=== PATIENT | female | born 1955 | race African-American/Black ===

== ENCOUNTER 2021-11-24 18:01 | Inpatient (IN) | payer MEDICARE, MEDICAID ==
[~2021-11-24] VITALS: Ht 160 cm; Wt 108.0 kg
[~2021-11-24 18:01] MED LIST: INSLAN; NAPR-681; NPH,100V; NPH,100V11
[2021-11-24 20:55] LABS: BASOPHILS % 0.4 % (0.0-2.0); EOSINOPHILS % 0.1 % (0.0-5.0); HEMOGLOBIN. 10.2 g/dL (12.0-16.0); LYMPHOCYTES % 10.8 % (20.0-50.0); MEAN CORPUSCULAR HEMOGLOBIN 25.4 pg (28.0-32.0); MEAN CORPUSCULAR VOLUME 79.9 fL (81.0-99.0); MEAN PLATELET VOLUME 8.3 fl (7.4-10.4); MONOCYTES % 10.1 % (2.0-8.0); NEUTROPHILS % 78.6 % (40.0-76.0); PLATELET 324 x1000/uL (130-400); RED BLOOD CELL COUNT 4.01 mill/uL (4.2-5.4); RED CELL DISTRIBUTION WIDTH 14.4 % (11.6-14.6)
[2021-11-24 20:56] LABS: CHLORIDE 107 mEq/L (98-107)
[2021-11-24] MEDS ORDERED: FUROSEMIDE 40MG/4ML VIAL IVP ONE (22:15)
[2021-11-24] MEDS ORDERED: KETOROLAC 30MG/ML VIAL IV ONE (22:15)
[2021-11-24] MEDS ORDERED: GABAPENTIN 300MG CAPSULE PO ONE (22:15)
[2021-11-25] MEDS ORDERED: GUAIFENESIN 200MG/10ML SUGAR FREE UDC PO PRN (02:30)
[2021-11-25] MEDS ORDERED: MAGNESIUM/ALUMINUM HYDROXIDE/SIMETHICONE 30ML UDC PO PRN (02:30)
[2021-11-25] MEDS ORDERED: IPRATROPIUM/ALBUTEROL 0.5-3(2.5)MG/3ML NEB NEB PRN (02:30)
[2021-11-25] MEDS ORDERED: ONDANSETRON HCL 4MG/2ML INJ IV PRN (02:30)
[2021-11-25] MEDS ORDERED: ACETAMINOPHEN 325MG TABLET PO PRN (02:30)
[2021-11-25] MEDS ORDERED: HYDROCODONE/ACETAMINOPHEN 5/325MG TABLET PO PRN (02:30)
[2021-11-25 02:40] VITALS: BP 165/78
[2021-11-25 04:00] VITALS: BP 158/64
[2021-11-25] MEDS ORDERED: DEXTROSE 50% WATER 50ML SYRINGE IV PRN (06:45)
[2021-11-25] MEDS ORDERED: HYDRALAZINE HCL 10MG TABLET PO PRN (06:45)
[2021-11-25 07:13] LABS: HEMATOCRIT. 33.4 % (36.0-48.0); HEMOGLOBIN. 10.6 g/dL (12.0-16.0); MEAN CORPUSCULAR HEMOGLOBIN 25.7 pg (28.0-32.0); MEAN PLATELET VOLUME 8.3 fl (7.4-10.4); PLATELET 299 x1000/uL (130-400); RED BLOOD CELL COUNT 4.13 mill/uL (4.2-5.4); RED CELL DISTRIBUTION WIDTH 14.3 % (11.6-14.6)
[2021-11-25] MEDS: BLOOD SUGAR DIAGNOSTIC STRIP TEST SCH ×4 (07:55→20:46)
[2021-11-25 08:00] VITALS: BP 178/78
[2021-11-25 08:07] LABS: PHOSPHORUS 3.9 mg/dL (2.5-4.9)
[2021-11-25] MEDS: INSULIN LISPRO 100 UNITS/ML SUBCUT SCH ×4 (08:10→20:48)
[2021-11-25] MEDS ORDERED: NALOXONE HCL 0.4MG/ML VIAL IV PRN (08:15)
[2021-11-25] MEDS ORDERED: PIPERACILLIN/TAZOBACTAM 3.375 G in DEXTROSE 5% WATER 50 ML IV SCH (08:30)
[2021-11-25] MEDS ORDERED: ENOXAPARIN 40MG/0.4ML SYR SUBCUT SCH (09:00)
[2021-11-25] MEDS ORDERED: AMLO10TA4 MT (09:11)
[2021-11-25] MEDS ORDERED: LEVO112T7 MT (09:11)
[2021-11-25] MEDS ORDERED: LIP40 MT (09:11)
[2021-11-25] MEDS: CLONIDINE 0.1MG TABLET PO PRN (09:23)
[2021-11-25 09:28] LABS: PLATELET ESTIMATE NORMAL
[2021-11-25] MEDS ORDERED: VANCOMYCIN 2,000 MG in DEXT 5% WATER 500 ML IV NR (10:00)
[2021-11-25 12:00] VITALS: BP 161/76
[2021-11-25] MEDS: PIPERACILLIN/TAZOBACTAM 3.375 G in DEXTROSE 5% WATER 50 ML IV SCH ×2 (13:39→22:16)
[2021-11-25 16:00] VITALS: BP 154/71
[2021-11-25] MEDS: AMLODIPINE 10MG TABLET PO SCH (16:07)
[2021-11-25 20:00] VITALS: BP 158/67
[2021-11-25] MEDS: ENOXAPARIN 40MG/0.4ML SYR SUBCUT SCH (20:46)
[2021-11-26] VITALS: BP 121/70
[2021-11-26 04:00] VITALS: BP 136/73
[2021-11-26] MEDS: PIPERACILLIN/TAZOBACTAM 3.375 G in DEXTROSE 5% WATER 50 ML IV SCH ×3 (05:15→21:30)
[2021-11-26] MEDS: BLOOD SUGAR DIAGNOSTIC STRIP TEST SCH ×4 (05:42→21:00)
[2021-11-26] MEDS: INSULIN LISPRO 100 UNITS/ML SUBCUT SCH ×4 (05:42→21:00)
[2021-11-26 07:41] LABS: BASOPHILS % 0.3 % (0.0-2.0); EOSINOPHILS % 3.7 % (0.0-5.0); HEMATOCRIT. 28.9 % (36.0-48.0); HEMOGLOBIN. 9.2 g/dL (12.0-16.0); LYMPHOCYTES % 14.4 % (20.0-50.0); MEAN CORPUSCULAR HEMOGLOBIN 25.6 pg (28.0-32.0); MEAN PLATELET VOLUME 8.3 fl (7.4-10.4); MONOCYTES % 11.9 % (2.0-8.0); NEUTROPHILS % 69.7 % (40.0-76.0); PLATELET 289 x1000/uL (130-400); RED BLOOD CELL COUNT 3.61 mill/uL (4.2-5.4); RED CELL DISTRIBUTION WIDTH 14.1 % (11.6-14.6)
[2021-11-26 07:56] LABS: PHOSPHORUS 2.9 mg/dL (2.5-4.9)
[2021-11-26 08:00] VITALS: BP 144/66
[2021-11-26] MEDS: AMLODIPINE 10MG TABLET PO SCH (09:45)
[2021-11-26] MEDS: LEVOTHYROXINE SODIUM 112MCG TABLET PO SCH (09:45)
[2021-11-26] MEDS: ENOXAPARIN 40MG/0.4ML SYR SUBCUT SCH ×2 (09:45→21:30)
[2021-11-26] MEDS: VANCOMYCIN 750MG PMX (XELLIA) 150 ML IV SCH (09:47)
[2021-11-26 12:00] VITALS: BP 156/63
[2021-11-26 16:00] VITALS: BP 132/55
[2021-11-26 18:27] LABS: CREATINE KINASE MB FRACTION 1.1 ng/mL (0.5-3.6)
[2021-11-26 20:00] VITALS: BP 158/67
[2021-11-27 00:05] VITALS: BP 152/76
[2021-11-27 00:55] LABS: CREATINE KINASE MB FRACTION 1.3 ng/mL (0.5-3.6)
[2021-11-27 04:00] VITALS: BP 154/60
[2021-11-27] MEDS: PIPERACILLIN/TAZOBACTAM 3.375 G in DEXTROSE 5% WATER 50 ML IV SCH ×3 (05:38→20:54)
[2021-11-27] MEDS: BLOOD SUGAR DIAGNOSTIC STRIP TEST SCH ×4 (05:43→20:54)
[2021-11-27] MEDS: INSULIN LISPRO 100 UNITS/ML SUBCUT SCH ×4 (05:43→21:00)
[2021-11-27 08:24] LABS: CREATINE KINASE MB FRACTION 1.2 ng/mL (0.5-3.6)
[2021-11-27] MEDS: AMLODIPINE 10MG TABLET PO SCH (09:50)
[2021-11-27] MEDS: LEVOTHYROXINE SODIUM 112MCG TABLET PO SCH (09:50)
[2021-11-27] MEDS: VANCOMYCIN 750MG PMX (XELLIA) 150 ML IV SCH (09:50)
[2021-11-27] MEDS ORDERED: IOHEXOL-350 100 ML BOTTLE ONE (10:32)
[2021-11-27 12:00] VITALS: BP 148/65
[2021-11-27] MEDS: CLOPIDOGREL 75MG TABLET PO SCH (12:46)
[2021-11-27] MEDS: ENOXAPARIN 40MG/0.4ML SYR SUBCUT SCH ×2 (12:46→20:56)
[2021-11-27 16:00] VITALS: BP 169/77
[2021-11-27 20:00] VITALS: BP 124/88
[2021-11-27] MEDS ORDERED: DEXTROSE 50% WATER 50ML SYRINGE IV PRN ×3 (23:15)
[2021-11-27] MEDS ORDERED: INSULIN GLARGINE 100 UNITS/ML SUBCUT NR (23:15)
[2021-11-28 00:05] VITALS: BP 143/71
[2021-11-28 04:00] VITALS: BP 156/81
[2021-11-28] MEDS ORDERED: VANCOMYCIN 750MG PREMIX 150 ML IV SCH (04:00)
[2021-11-28] MEDS: PIPERACILLIN/TAZOBACTAM 3.375 G in DEXTROSE 5% WATER 50 ML IV SCH (05:35)
[2021-11-28] MEDS: BLOOD SUGAR DIAGNOSTIC STRIP TEST SCH ×4 (06:07→20:54)
[2021-11-28] MEDS ORDERED: BLOOD SUGAR DIAGNOSTIC STRIP TEST SCH ×2 (07:40)
[2021-11-28] MEDS: LEVOTHYROXINE SODIUM 112MCG TABLET PO SCH (07:58)
[2021-11-28] MEDS: INSULIN LISPRO 100 UNITS/ML SUBCUT SCH ×7 (07:59→20:54)
[2021-11-28 08:00] VITALS: BP 159/62
[2021-11-28 08:12] LABS: BASOPHILS % 0.3 % (0.0-2.0); EOSINOPHILS % 5.4 % (0.0-5.0); HEMATOCRIT. 30.2 % (36.0-48.0); MEAN CORPUSCULAR VOLUME 78.8 fL (81.0-99.0); MEAN PLATELET VOLUME 8.2 fl (7.4-10.4); MONOCYTES % 10.4 % (2.0-8.0); NEUTROPHILS % 69.9 % (40.0-76.0); PLATELET 347 x1000/uL (130-400); RED BLOOD CELL COUNT 3.83 mill/uL (4.2-5.4); RED CELL DISTRIBUTION WIDTH 13.8 % (11.6-14.6)
[2021-11-28 08:17] LABS: PHOSPHORUS 3.3 mg/dL (2.5-4.9)
[2021-11-28] MEDS: CLOPIDOGREL 75MG TABLET PO SCH (08:45)
[2021-11-28] MEDS: ENOXAPARIN 40MG/0.4ML SYR SUBCUT SCH ×2 (08:45→20:54)
[2021-11-28] MEDS: AMLODIPINE 10MG TABLET PO SCH (08:45)
[2021-11-28] MEDS: INSULIN GLARGINE 100 UNITS/ML SUBCUT SCH (10:12)
[2021-11-28 12:00] VITALS: BP 137/75
[2021-11-28 16:00] VITALS: BP 151/65
[2021-11-28 20:00] VITALS: BP 138/77
[2021-11-29] VITALS: BP 148/69
[2021-11-29 04:00] VITALS: BP 139/72
[2021-11-29] MEDS: LEVOTHYROXINE SODIUM 112MCG TABLET PO SCH (06:42)
[2021-11-29] MEDS: BLOOD SUGAR DIAGNOSTIC STRIP TEST SCH ×4 (06:45→20:54)
[2021-11-29] MEDS: INSULIN LISPRO 100 UNITS/ML SUBCUT SCH ×7 (06:45→20:54)
[2021-11-29 08:00] VITALS: BP 149/70
[2021-11-29] MEDS: CLOPIDOGREL 75MG TABLET PO SCH (09:23)
[2021-11-29] MEDS: AMLODIPINE 10MG TABLET PO SCH (09:23)
[2021-11-29] MEDS: ENOXAPARIN 40MG/0.4ML SYR SUBCUT SCH ×2 (09:24→20:49)
[2021-11-29] MEDS: INSULIN GLARGINE 100 UNITS/ML SUBCUT SCH (09:24)
[2021-11-29 12:00] VITALS: BP 130/66
[2021-11-29 16:00] VITALS: BP 142/73
[2021-11-29 20:00] VITALS: BP 164/74
[2021-11-30] VITALS: BP 143/69
[2021-11-30 04:00] VITALS: BP 170/72
[2021-11-30] MEDS: CLONIDINE 0.1MG TABLET PO PRN (04:00)
[2021-11-30] MEDS: BLOOD SUGAR DIAGNOSTIC STRIP TEST SCH ×4 (06:24→21:45)
[2021-11-30] MEDS: INSULIN LISPRO 100 UNITS/ML SUBCUT SCH ×7 (06:24→21:00)
[2021-11-30] MEDS: LEVOTHYROXINE SODIUM 112MCG TABLET PO SCH (06:25)
[2021-11-30 08:00] VITALS: BP 131/53
[2021-11-30] MEDS: ENOXAPARIN 40MG/0.4ML SYR SUBCUT SCH ×2 (09:50→21:44)
[2021-11-30] MEDS: CLOPIDOGREL 75MG TABLET PO SCH (09:50)
[2021-11-30] MEDS: AMLODIPINE 10MG TABLET PO SCH (09:51)
[2021-11-30] MEDS ORDERED: LIDOCAINE HCL/PF 1% 10 MG/ML 5ML VIAL ONE (10:30)
[2021-11-30] MEDS ORDERED: IODIXANOL 320MG/ML 100 ML BOTTLE IV ONE (10:30)
[2021-11-30] MEDS ORDERED: HEPARIN 1000 UNITS/ML 10ML ONE (10:31)
[2021-11-30] MEDS ORDERED: MIDAZOLAM HCL 2 MG/2 ML VIAL ONE (11:35)
[2021-11-30] MEDS ORDERED: FENTANYL CITRATE/PF 50MCG/ML 2ML VIAL ONE (11:35)
[2021-11-30] MEDS: INSULIN GLARGINE 100 UNITS/ML SUBCUT SCH (13:51)
[2021-11-30] MEDS: ACETAMINOPHEN 325MG TABLET PO PRN ×2 (14:02→21:44)
[2021-11-30 20:00] VITALS: BP 137/60
[2021-12-01 04:00] VITALS: BP_SYST 68
[2021-12-01 06:24] LABS: BASOPHILS % 0.3 % (0.0-2.0); EOSINOPHILS % 3.8 % (0.0-5.0); HEMATOCRIT. 32.8 % (36.0-48.0); HEMOGLOBIN. 10.6 g/dL (12.0-16.0); LYMPHOCYTES % 18.3 % (20.0-50.0); MEAN CORPUSCULAR HEMOGLOBIN 25.7 pg (28.0-32.0); MEAN CORPUSCULAR VOLUME 79.6 fL (81.0-99.0); MEAN PLATELET VOLUME 7.7 fl (7.4-10.4); MONOCYTES % 8.9 % (2.0-8.0); NEUTROPHILS % 68.7 % (40.0-76.0); PLATELET 449 x1000/uL (130-400); RED BLOOD CELL COUNT 4.12 mill/uL (4.2-5.4); RED CELL DISTRIBUTION WIDTH 13.7 % (11.6-14.6)
[2021-12-01] MEDS: BLOOD SUGAR DIAGNOSTIC STRIP TEST SCH ×4 (06:36→20:32)
[2021-12-01] MEDS: INSULIN LISPRO 100 UNITS/ML SUBCUT SCH ×7 (06:36→21:45)
[2021-12-01] MEDS: LEVOTHYROXINE SODIUM 112MCG TABLET PO SCH ×2 (06:39→08:53)
[2021-12-01 06:40] LABS: PHOSPHORUS 3.8 mg/dL (2.5-4.9)
[2021-12-01] MEDS: AMLODIPINE 10MG TABLET PO SCH (08:53)
[2021-12-01] MEDS: CLOPIDOGREL 75MG TABLET PO SCH (08:53)
[2021-12-01] MEDS: ENOXAPARIN 40MG/0.4ML SYR SUBCUT SCH ×2 (08:54→21:43)
[2021-12-01] MEDS: INSULIN GLARGINE 100 UNITS/ML SUBCUT SCH (10:33)
[2021-12-01 12:00] VITALS: BP 154/76
[2021-12-01] MEDS ORDERED: CLOP75TA15 PO (13:22)
[2021-12-01 16:00] VITALS: BP 167/88
[2021-12-01 20:00] VITALS: BP 157/77
[2021-12-02] VITALS: BP 121/58
[2021-12-02 04:00] VITALS: BP 131/58
[2021-12-02] MEDS: BLOOD SUGAR DIAGNOSTIC STRIP TEST SCH ×2 (07:40→13:01)
[2021-12-02 08:00] VITALS: BP 138/51
[2021-12-02] MEDS: INSULIN LISPRO 100 UNITS/ML SUBCUT SCH ×4 (09:15→13:00)
[2021-12-02] MEDS: CLOPIDOGREL 75MG TABLET PO SCH (09:15)
[2021-12-02] MEDS: AMLODIPINE 10MG TABLET PO SCH (09:16)
[2021-12-02] MEDS: ENOXAPARIN 40MG/0.4ML SYR SUBCUT SCH (09:16)
[2021-12-02] MEDS: INSULIN GLARGINE 100 UNITS/ML SUBCUT SCH (11:07)
[2021-12-02 12:00] VITALS: BP 139/62
== END 2021-12-02 13:45 | disposition home health service (06) | DRG 253 ==
LOC: ER 18:01 → MICUSO 23:23 → EDBEDREQ 23:29 → 7WST 11-25 02:40
PROVIDERS: ADMIT Internal Medicine; ATTEND Internal Medicine
PROC: 0JBP0ZZ Excision of Left Lower Leg Subcutaneous Tissue and Fascia, Open Approach (ICD-10-PCS; 2021-11-25)
PROC: 0JBR0ZZ Excision of Left Foot Subcutaneous Tissue and Fascia, Open Approach (ICD-10-PCS; 2021-11-25)
PROC: 0JBR0ZZ Excision of Left Foot Subcutaneous Tissue and Fascia, Open Approach (ICD-10-PCS; 2021-11-25)
PROC: 02HV33Z Insertion of Infusion Device into Superior Vena Cava, Percutaneous Approach (ICD-10-PCS; 2021-11-27)
PROC: B548ZZA Ultrasonography of Superior Vena Cava, Guidance (ICD-10-PCS; 2021-11-27)
PROC: 047L3ZZ Dilation of Left Femoral Artery, Percutaneous Approach (ICD-10-PCS; principal; 2021-11-30)
PROC: 047N3ZZ Dilation of Left Popliteal Artery, Percutaneous Approach (ICD-10-PCS; 2021-11-30)
DX: E11.51 Type 2 diabetes mellitus with diabetic peripheral angiopathy without gangrene (principal); E44.1 Mild protein-calorie malnutrition; M86.9 Osteomyelitis, unspecified; Z68.41 Body mass index [BMI] 40.0-44.9, adult; N17.9 Acute kidney failure, unspecified; E11.621 Type 2 diabetes mellitus with foot ulcer; I70.202 Unspecified atherosclerosis of native arteries of extremities, left leg; E11.42 Type 2 diabetes mellitus with diabetic polyneuropathy; L97.529 Non-pressure chronic ulcer of other part of left foot with unspecified severity; I87.2 Venous insufficiency (chronic) (peripheral); I10 Essential (primary) hypertension; E66.9 Obesity, unspecified; E11.65 Type 2 diabetes mellitus with hyperglycemia; E05.90 Thyrotoxicosis, unspecified without thyrotoxic crisis or storm; E11.69 Type 2 diabetes mellitus with other specified complication; Z79.4 Long term (current) use of insulin; Z91.14 Patient's other noncompliance with medication regimen; Z86.73 Personal history of transient ischemic attack (TIA), and cerebral infarction without residual deficits; I70.209 Unspecified atherosclerosis of native arteries of extremities, unspecified extremity
CPT/HCPCS: 36415; 36573; 37224; 37228; 71045; 73620; 75635; 75710; 80048; 80053; 80061; 80202; 82550; 82553; 82962; 83036; 83605; 83735; 83880; 84100; 84145; 84439; 84443; 84484; 85025; 85379; 85651; 87426; 93005; 93306; 93923; 93970; 97110; 97162; 97166; 97530; 99285; A6261; C1725; C1760; C1769; C1893; C1894; J1644; J1650; J1815; J1885; J1940; J2250; J2543; J3010; J3370; J3490; J7060; Q9967

== ENCOUNTER 2021-12-13 15:43 | Emergency (ER) | payer OTHER, MEDICAID ==
[~2021-12-13] VITALS: Ht 167.6 cm; Wt 91.0 kg
[~2021-12-13 15:43] MED LIST changes: +AMLO10TA4 MT; +CLOP75TA15 PO; +LEVO112T7 MT; +LIP40 MT
[2021-12-13] MEDS ORDERED: ONDANSETRON HCL 4MG/2ML INJ IV STA ×2 (16:21→16:27)
[2021-12-13] MEDS ORDERED: MORPHINE SULFATE 4 MG/ML CPJ (NOT FOR IM USE) IV STA ×2 (16:21→16:27)
[2021-12-13] MEDS ORDERED: VANCOMYCIN 1G PREMIX 200 ML IV ONE ×2 (16:30)
[2021-12-13] MEDS ORDERED: SODIUM CHLORIDE 0.9% 1000ML BAG (SEPSIS BOLUS) IV ONE ×2 (16:30)
[2021-12-13] MEDS ORDERED: PIPERACILLIN/TAZ 3.375G PREMIX 50 ML IV ONE ×2 (16:30)
[2021-12-13] MEDS ORDERED: AMLODIPINE 10MG TABLET PO ONE (16:45)
[2021-12-13 17:36] LABS: INR 1.1; PARTIAL THROMBOPLASTIN TIME 29.1 sec (23.4-31.0); PROTHROMBIN TIME 11.5 sec (9.6-11.0)
[2021-12-13 17:38] LABS: CHLORIDE 98 mEq/L (98-107)
[2021-12-13 18:07] LABS: HEMATOCRIT. 33.4 % (36.0-48.0); HEMOGLOBIN. 10.5 g/dL (12.0-16.0); MEAN CORPUSCULAR HEMOGLOBIN 25.1 pg (28.0-32.0); MEAN CORPUSCULAR VOLUME 79.9 fL (81.0-99.0); MEAN PLATELET VOLUME 8.1 fl (7.4-10.4); PLATELET 448 x1000/uL (130-400); RED BLOOD CELL COUNT 4.18 mill/uL (4.2-5.4); RED CELL DISTRIBUTION WIDTH 14.7 % (11.6-14.6)
[2021-12-13] MEDS ORDERED: CLINDAMYCIN 600 MG in DEXTROSE 5% WATER 50 ML IV ONE (18:15)
[2021-12-13] MEDS ORDERED: CLINDAMYCIN 600MG PREMIX 50 ML IV NR (18:15)
[2021-12-13] MEDS ORDERED: INSULIN REGULAR (HUMULIN R) 300UNITS/3ML VIAL SUBCUT ONE (19:15)
[2021-12-13] MEDS ORDERED: HYDRALAZINE 20MG/ML VIAL IV ONE (19:15)
[2021-12-13] MEDS ORDERED: INSULIN REGULAR (HUMULIN R) 300UNITS/3ML VIAL SUBCUT NR (19:15)
[2021-12-13 20:06] LABS: PLATELET ESTIMATE INCREASED
[2021-12-13 20:30] LABS: BETA HYDROXYBUTYRATE 1.1 mMol/L (0.0-0.3)
[2021-12-13] MEDS ORDERED: CLONIDINE 0.2MG TABLET PO ONE (20:45)
[2021-12-14 01:44] VITALS: BP 116/64
== END 2021-12-14 01:45 | disposition short-term general hospital (02) ==
LOC: ER 15:43
DX: E11.52 Type 2 diabetes mellitus with diabetic peripheral angiopathy with gangrene (principal); I96 Gangrene, not elsewhere classified; E11.621 Type 2 diabetes mellitus with foot ulcer; L89.623 Pressure ulcer of left heel, stage 3; L03.116 Cellulitis of left lower limb; E11.65 Type 2 diabetes mellitus with hyperglycemia; I10 Essential (primary) hypertension; N28.9 Disorder of kidney and ureter, unspecified; D64.9 Anemia, unspecified; E05.90 Thyrotoxicosis, unspecified without thyrotoxic crisis or storm; Z20.822 Contact with and (suspected) exposure to COVID-19; Z79.4 Long term (current) use of insulin; Z79.899 Other long term (current) drug therapy
CPT/HCPCS: 36415; 71045; 73630; 80053; 82010; 82962; 83605; 83880; 84145; 84484; 85025; 85610; 85730; 87040; 87426; 93005; 93970; 96365; 96366; 96368; 96375; 99285; C9803; J0360; J1815; J2270; J2405; J2543; J3490; J7030; J7060